=== PATIENT | female | born 1955 | race Caucasian/White ===

== ENCOUNTER → 2016-06-07 | Outpatient (CLI) | payer OTHER ==
[~2016-06-07] MED LIST: 'PARAFON FORTE500 M1 PO; ANTIBIOTIC O500 U/GM TP; FLEXERIL5 MG PO; IBUPROFEN 30 M800 MG PO; ISORDIL PO; LOVASTATIN10 MG PO; MOBIC15 MG PO; NAPROSYN500 MG PO; PEPCID20 MG PO; TRAMADOL HCL50 MG PO; XANAX0.25 MG PO; ZOLOFT50 MG PO
== END | disposition home or self-care (01) ==
LOC: MAMMO 05-24 09:00
DX: R92.8 Other abnormal and inconclusive findings on diagnostic imaging of breast (principal); Z85.3 Personal history of malignant neoplasm of breast

== ENCOUNTER → 2016-07-07 | Outpatient (CLI) | payer OTHER | END | disposition home or self-care (01) | LOC: RAD 11:30 → CT 07-10 08:00 → RAD 07-13 13:00 → CT 07-13 14:00 | DX: Z13.820 Encounter for screening for osteoporosis (principal); M85.88 Other specified disorders of bone density and structure, other site; F17.200 Nicotine dependence, unspecified, uncomplicated; Z85.3 Personal history of malignant neoplasm of breast; Z90.11 Acquired absence of right breast and nipple ==

== ENCOUNTER → 2016-07-10 | Outpatient (CLI) | payer OTHER | END | disposition home or self-care (01) | LOC: CT 01:45 | DX: K58.9 Irritable bowel syndrome, unspecified (principal); R78.4 Finding of other drugs of addictive potential in blood; Z85.3 Personal history of malignant neoplasm of breast ==

== ENCOUNTER 2017-02-02 14:38 | Inpatient (IN) | payer OTHER ==
[~2017-02-02] VITALS: Ht 160 cm; Wt 69.5 kg
[~2017-02-02 14:38] MED LIST changes: -BUSPAR5 MG PO
[2017-02-02 14:50] VITALS: BP 158/74
[2017-02-02 15:06] LABS: BASO # 0.1 10*3/uL (0.0-0.1); BASO % 0.8 % (0.0-1.0); EOS # 0.1 10*3/uL (0.0-0.4); EOS % 1.4 % (1.0-4.0); HEMATOCRIT 47.6 % (37.0-47.0); LYMPH # 2.9 10*3/uL (1.3-4.4); LYMPH % 34.5 % (27.0-41.0); MEAN CELL VOLUME 89.6 fl (81.0-99.0); MEAN CORPUSCULAR HGB 30.1 pg (27.0-31.0); MEAN CORPUSCULAR HGB CONC 33.6 g/dl (33.0-37.0); MONO # 0.8 10*3/uL (0.1-1.0); MONO % 9.7 % (3.0-9.0); NEUT # 4.5 10*3/uL (2.3-7.9); NEUT % 53.4 % (47.0-73.0); PLATELET COUNT AUTOMATED 298 10*3/uL (130-400); RED BLOOD COUNT 5.31 10*6/uL (4.10-5.10); RED CELL DISTRI WIDTH 13.2 % (0-14.5); WHITE BLOOD COUNT 8.5 10*3/uL (4.8-10.8)
[2017-02-02 15:16] LABS: ACT PARTIAL THROMBO TIME 25.5 SECONDS (20.8-31.5); INTERNATIONAL NORM RATIO 0.9 (2.0-3.5)
[2017-02-02 15:23] LABS: ALKALINE PHOSPHATASE 125 U/L (45-117); BUN 12 mg/dl (7-24); CHLORIDE 104 mmol/L (98-107); CREATININE 0.88 mg/dL (0.55-1.02); POTASSIUM 4.2 mmol/L (3.5-5.1); SGOT/AST 13 IU/L (3-35); SGPT/ALT 21 U/L (12-78); SODIUM 137 mmol/L (136-145); TOTAL PROTEIN 8.1 gm/dL (6.4-8.2)
[2017-02-02 15:29] LABS: TROPONIN I < 0.015 ng/ml (<0.045)
[2017-02-02 15:48] LABS: BILIRUBIN NEGATIVE (NEGATIVE); BLOOD 1+ (NEGATIVE); CLARITY CLEAR (CLEAR); COLOR YELLOW (YELLOW); GLUCOSE NEGATIVE (NEGATIVE); KETONE NEGATIVE (NEGATIVE); LEUKO ESTERASE NEGATIVE (NEGATIVE); NITRITE NEGATIVE (NEGATIVE); PH 5.5 (5.0-9.0); UROBILINOGEN 0.2 E.U./dl (0.2-1.0)
[2017-02-02 15:50] LABS: BACTERIA TRACE; WBC 0-2 wbc/hpf (0-5)
[2017-02-02 16:00] VITALS: BP 102/68
[2017-02-02] MEDS ORDERED: BUSPAR5 MG PO (16:43)
[2017-02-02 20:00] VITALS: BP 129/51
[2017-02-03] VITALS: BP 108/60
[2017-02-03 07:12] LABS: BASO # 0.1 10*3/uL (0.0-0.1); BASO % 0.8 % (0.0-1.0); EOS # 0.1 10*3/uL (0.0-0.4); EOS % 1.8 % (1.0-4.0); HEMATOCRIT 45.4 % (37.0-47.0); HEMOGLOBIN 15.1 g/dl (12.0-16.0); LYMPH # 2.2 10*3/uL (1.3-4.4); LYMPH % 36.8 % (27.0-41.0); MEAN CELL VOLUME 89.5 fl (81.0-99.0); MEAN CORPUSCULAR HGB 29.8 pg (27.0-31.0); MEAN CORPUSCULAR HGB CONC 33.3 g/dl (33.0-37.0); MEAN PLATELET VOLUME 10.1 fl (9.6-12.3); MONO # 0.7 10*3/uL (0.1-1.0); MONO % 11.3 % (3.0-9.0); NEUT # 2.9 10*3/uL (2.3-7.9); NEUT % 49.1 % (47.0-73.0); PLATELET COUNT AUTOMATED 283 10*3/uL (130-400); RED BLOOD COUNT 5.07 10*6/uL (4.10-5.10); RED CELL DISTRI WIDTH 13.2 % (0-14.5)
[2017-02-03 07:45] LABS: BUN 12 mg/dl (7-24); CHLORIDE 106 mmol/L (98-107); CHOLESTEROL 181 mg/dL (<200); CREATININE 0.78 mg/dL (0.55-1.02); HDL CHOLESTEROL 45 mg/dl (40-60); LDL CHOLESTEROL 110 mg/dL (9-159); POTASSIUM 4.1 mmol/L (3.5-5.1); SODIUM 139 mmol/L (136-145); TRIGLYCERIDES 130 mg/dl (<150); VLDL CHOLESTEROL 26 mg/dL (6-40)
[2017-02-03 07:46] LABS: ACT PARTIAL THROMBO TIME 25.4 SECONDS (20.8-31.5); INTERNATIONAL NORM RATIO 0.9 (2.0-3.5)
[2017-02-03 07:50] LABS: THYROID STIM HORMONE (HS) 0.933 uIU/ml (0.358-4.75)
[2017-02-03 08:00] VITALS: BP 125/66
[2017-02-03 09:07] LABS: VITAMIN D, 25-HYDROXY 15.4 ng/mL (30-100)
[2017-02-03 12:00] VITALS: BP 105/56
== END 2017-02-03 15:13 | disposition home or self-care (01) | DRG 312 ==
LOC: ED 14:38 → EDHOLD 15:34 → 5E 16:11
PROVIDERS: Emergency Medicine; Internal Medicine; ADMIT Internal Medicine
DX: R55 Syncope and collapse (principal); E83.41 Hypermagnesemia; F17.210 Nicotine dependence, cigarettes, uncomplicated; I10 Essential (primary) hypertension; Z71.6 Tobacco abuse counseling; Z90.11 Acquired absence of right breast and nipple; Z80.41 Family history of malignant neoplasm of ovary; Z82.49 Family history of ischemic heart disease and other diseases of the circulatory system; Z88.6 Allergy status to analgesic agent; Z88.8 Allergy status to other drugs, medicaments and biological substances; Z79.899 Other long term (current) drug therapy

== ENCOUNTER → 2017-02-02 | Outpatient (CLI) | payer OTHER ==
[~2017-02-02] MED LIST changes: +BUSPAR5 MG PO
== END ==
LOC: CT 10:25
DX: N63.20 Unspecified lump in the left breast, unspecified quadrant (principal); C50.912 Malignant neoplasm of unspecified site of left female breast; I25.10 Atherosclerotic heart disease of native coronary artery without angina pectoris

== ENCOUNTER 2017-02-08 10:01 | Emergency (ER) | payer OTHER ==
[~2017-02-08] VITALS: Ht 160 cm; Wt 68.0 kg
[~2017-02-08 10:01] MED LIST changes: +BUSPAR5 MG PO
[2017-02-08 10:36] LABS: BASO # 0.1 10*3/uL (0.0-0.1); BASO % 0.9 % (0.0-1.0); EOS # 0.1 10*3/uL (0.0-0.4); EOS % 0.7 % (1.0-4.0); HEMATOCRIT 48.8 % (37.0-47.0); HEMOGLOBIN 16.3 g/dl (12.0-16.0); MEAN CELL VOLUME 90.4 fl (81.0-99.0); MEAN CORPUSCULAR HGB 30.2 pg (27.0-31.0); MEAN CORPUSCULAR HGB CONC 33.4 g/dl (33.0-37.0); MEAN PLATELET VOLUME 10.2 fl (9.6-12.3); MONO # 0.7 10*3/uL (0.1-1.0); MONO % 9.8 % (3.0-9.0); NEUT # 4.7 10*3/uL (2.3-7.9); NEUT % 62.3 % (47.0-73.0); PLATELET COUNT AUTOMATED 292 10*3/uL (130-400); RED CELL DISTRI WIDTH 13.3 % (0-14.5); WHITE BLOOD COUNT 7.5 10*3/uL (4.8-10.8)
[2017-02-08 10:55] LABS: ALBUMIN 3.9 gm/dl (3.1-4.5); ALKALINE PHOSPHATASE 119 U/L (45-117); BUN 15 mg/dl (7-24); CHLORIDE 104 mmol/L (98-107); CREATININE 0.76 mg/dL (0.55-1.02); POTASSIUM 4.1 mmol/L (3.5-5.1); SGOT/AST 12 IU/L (3-35); SGPT/ALT 18 U/L (12-78); SODIUM 139 mmol/L (136-145); TOTAL PROTEIN 7.9 gm/dL (6.4-8.2)
[2017-02-08] MEDS ORDERED: ATIVAN1 MG PO (11:23)
[2017-02-08 11:28] VITALS: BP 144/76
== END 2017-02-08 11:53 | disposition home or self-care (01) ==
LOC: ED 10:01
PROVIDERS: Emergency Medicine
DX: R42 Dizziness and giddiness (principal); F41.9 Anxiety disorder, unspecified; R55 Syncope and collapse; R68.2 Dry mouth, unspecified; I10 Essential (primary) hypertension; F17.200 Nicotine dependence, unspecified, uncomplicated; Z88.6 Allergy status to analgesic agent; Z88.8 Allergy status to other drugs, medicaments and biological substances

== ENCOUNTER 2017-04-22 18:19 | Emergency (ER) | payer OTHER ==
[~2017-04-22] VITALS: Ht 160 cm; Wt 68.0 kg
[~2017-04-22 18:19] MED LIST changes: +ATIVAN1 MG PO
[2017-04-22 18:46] LABS: BASO # 0.1 10*3/uL (0.0-0.1); BASO % 0.9 % (0.0-1.0); EOS # 0.1 10*3/uL (0.0-0.4); EOS % 1.6 % (1.0-4.0); HEMATOCRIT 46.5 % (37.0-47.0); HEMOGLOBIN 15.6 g/dl (12.0-16.0); LYMPH # 2.8 10*3/uL (1.3-4.4); LYMPH % 32.4 % (27.0-41.0); MEAN CELL VOLUME 89.9 fl (81.0-99.0); MEAN CORPUSCULAR HGB 30.2 pg (27.0-31.0); MEAN CORPUSCULAR HGB CONC 33.5 g/dl (33.0-37.0); MEAN PLATELET VOLUME 9.9 fl (9.6-12.3); MONO # 0.9 10*3/uL (0.1-1.0); MONO % 9.9 % (3.0-9.0); NEUT # 4.7 10*3/uL (2.3-7.9); NEUT % 54.9 % (47.0-73.0); PLATELET COUNT AUTOMATED 329 10*3/uL (130-400); RED BLOOD COUNT 5.17 10*6/uL (4.10-5.10); RED CELL DISTRI WIDTH 13.1 % (0-14.5); WHITE BLOOD COUNT 8.6 10*3/uL (4.8-10.8)
[2017-04-22 18:59] LABS: INTERNATIONAL NORM RATIO 0.9 (2.0-3.5)
[2017-04-22 19:04] LABS: ALBUMIN 3.9 gm/dl (3.1-4.5); ALKALINE PHOSPHATASE 121 U/L (45-117); BUN 14 mg/dl (7-24); CHLORIDE 102 mmol/L (98-107); CREATININE 0.87 mg/dL (0.55-1.02); POTASSIUM 4.1 mmol/L (3.5-5.1); SGOT/AST 10 IU/L (3-35); SGPT/ALT 19 U/L (12-78); SODIUM 138 mmol/L (136-145); TOTAL PROTEIN 7.7 gm/dL (6.4-8.2)
[2017-04-22 19:06] LABS: TROPONIN I < 0.015 ng/ml (<0.045)
[2017-04-22] MEDS ORDERED: ATIVAN1 MG PO (19:56)
[2017-04-22 20:00] VITALS: BP 126/73
== END 2017-04-22 20:11 | disposition home or self-care (01) ==
LOC: ED 18:19
PROVIDERS: Physician Assistant
DX: F41.9 Anxiety disorder, unspecified (principal); M25.512 Pain in left shoulder; F17.200 Nicotine dependence, unspecified, uncomplicated; Z90.89 Acquired absence of other organs; Z98.890 Other specified postprocedural states; Z88.6 Allergy status to analgesic agent; Z88.5 Allergy status to narcotic agent; Z88.8 Allergy status to other drugs, medicaments and biological substances

== ENCOUNTER → 2017-05-31 | Outpatient (CLI) | payer OTHER | END | disposition home or self-care (01) | LOC: MAMMO 08:28 | DX: C50.912 Malignant neoplasm of unspecified site of left female breast (principal); F17.200 Nicotine dependence, unspecified, uncomplicated ==

== ENCOUNTER 2017-10-15 15:12 | Inpatient (IN) | payer OTHER ==
[~2017-10-15] VITALS: Ht 158.8 cm; Wt 70.6 kg
--- NOTE | ~2017-10-15 | EKG ---
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
--- NOTE | ~2017-10-15 | EKG ---
[place], [place] ELECTROCARDIOGRAM REPORT NAME: SADAF COLLINS UNIT #: [id number] ROOM: 517 DOCTOR: EMANY DRAFT REPORT BIRTHDATE: [birth year] [facility] Test Date: 2017-10-15 Test Time: 21:02:15 Pat Name: SADAF COLLINS Department: Room: 517 Gender: F Manager Surgical: : 1955 Requested By: MARIN COATS Order Number: [id number] Reading MD: Franco Larry MD Measurements Intervals [place] Rate: 71 P: 57 CT: 119 QRS: 86 QRSD: 78 T: 113 QT: 386 QTc: 420 Interpretive Statements Sinus rhythm Borderline short CT interval Left atrial enlargement Borderline right axis deviation Nonspecific T abnormalities, lateral leads Inferior ST elevation Compared to previous tracing, lateral T-wave abnormalities are now present Electronically Signed On 10-15-2017 20:00:46 PDT by Franco Larry MD CM:EKGRPT:ELECTROCARDIOGRAM REPORT 01 99 MARIN COATS EPIPHANY DRAFT REPORT MARIN COATS
--- NOTE | ~2017-10-15 | EKG ---
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 Electronically Signed On 10-15-2017 19:58:57 PDT by Franco Larry MD CM:EKGRPT:ELECTROCARDIOGRAM REPORT 29 57 MARIN COATS EPIPHANY DRAFT REPORT MARIN COATS
[2017-10-15 15:13] VITALS: BP 151/68
[2017-10-15 15:33] LABS: BASO # 0.1 10*3/uL (0.0-0.1); BASO % 0.9 % (0.0-1.0); EOS # 0.1 10*3/uL (0.0-0.4); HEMOGLOBIN 15.8 g/dl (12.0-16.0); LYMPH # 2.5 10*3/uL (1.3-4.4); LYMPH % 36.4 % (27.0-41.0); MEAN CELL VOLUME 89.5 fl (81.0-99.0); MEAN CORPUSCULAR HGB 30.1 pg (27.0-31.0); MEAN CORPUSCULAR HGB CONC 33.6 g/dl (33.0-37.0); MEAN PLATELET VOLUME 9.8 fl (9.6-12.3); MONO # 0.6 10*3/uL (0.1-1.0); MONO % 8.9 % (3.0-9.0); NEUT # 3.6 10*3/uL (2.3-7.9); NEUT % 51.7 % (47.0-73.0); PLATELET COUNT AUTOMATED 273 10*3/uL (130-400); RED BLOOD COUNT 5.25 10*6/uL (4.10-5.10); RED CELL DISTRI WIDTH 14.3 % (0-14.5); WHITE BLOOD COUNT 6.9 10*3/uL (4.8-10.8)
[2017-10-15 15:43] LABS: ACT PARTIAL THROMBO TIME 25.1 SECONDS (20.8-31.5); INTERNATIONAL NORM RATIO 0.9 (2.0-3.5)
[2017-10-15] MEDS ORDERED: PRAVACHOL PO (15:50)
[2017-10-15] MEDS ORDERED: VITAMIN E200 UNI1 PO (15:50)
[2017-10-15] MEDS ORDERED: SERTRALINE20 MG/1 ML PO (15:52)
[2017-10-15 15:54] LABS: ALKALINE PHOSPHATASE 108 U/L (45-117); BUN 18 mg/dl (7-24); CHLORIDE 105 mmol/L (98-107); CREATININE 1.09 mg/dL (0.55-1.02); POTASSIUM 3.8 mmol/L (3.5-5.1); SGOT/AST 10 IU/L (3-35); SGPT/ALT 19 U/L (12-78); SODIUM 139 mmol/L (136-145); TOTAL PROTEIN 7.4 gm/dL (6.4-8.2); TROPONIN I 0.042 ng/ml (<0.045)
[2017-10-15 16:00] VITALS: BP 147/58
[2017-10-15 16:00] LABS: THYROID STIM HORMONE (HS) 1.78 uIU/ml (0.358-4.75)
[2017-10-15 16:56] VITALS: BP 138/57
[2017-10-15] MEDS ORDERED: VITAMIN D50000 UNIT PO (16:58)
[2017-10-15] MEDS ORDERED: ZOLOFT50 MG PO (16:58)
[2017-10-15 17:05] VITALS: BP 111/72
[2017-10-15 17:58] VITALS: BP 136/65
[2017-10-15] MEDS ORDERED: CALCIUM500 M1 PO (18:26)
[2017-10-16] VITALS: BP 136/65
[2017-10-16 05:56] LABS: BASO # 0.1 10*3/uL (0.0-0.1); BASO % 0.9 % (0.0-1.0); EOS # 0.2 10*3/uL (0.0-0.4); EOS % 1.9 % (1.0-4.0); HEMATOCRIT 46.9 % (37.0-47.0); HEMOGLOBIN 15.2 g/dl (12.0-16.0); LYMPH # 2.9 10*3/uL (1.3-4.4); LYMPH % 31.7 % (27.0-41.0); MEAN CELL VOLUME 90.7 fl (81.0-99.0); MEAN CORPUSCULAR HGB 29.4 pg (27.0-31.0); MEAN CORPUSCULAR HGB CONC 32.4 g/dl (33.0-37.0); MEAN PLATELET VOLUME 10.3 fl (9.6-12.3); MONO # 0.9 10*3/uL (0.1-1.0); MONO % 9.4 % (3.0-9.0); NEUT # 5.1 10*3/uL (2.3-7.9); NEUT % 55.9 % (47.0-73.0); PLATELET COUNT AUTOMATED 278 10*3/uL (130-400); RED BLOOD COUNT 5.17 10*6/uL (4.10-5.10); RED CELL DISTRI WIDTH 14.3 % (0-14.5); WHITE BLOOD COUNT 9.2 10*3/uL (4.8-10.8)
[2017-10-16 06:13] LABS: BUN 14 mg/dl (7-24); CHLORIDE 110 mmol/L (98-107); CHOLESTEROL 250 mg/dL (<200); CREATININE 0.75 mg/dL (0.55-1.02); HDL CHOLESTEROL 48 mg/dl (40-60); LDL CHOLESTEROL 170 mg/dL (9-159); LIPASE 234 U/L (73-393); POTASSIUM 4.1 mmol/L (3.5-5.1); SODIUM 141 mmol/L (136-145); TRIGLYCERIDES 161 mg/dl (<150); VLDL CHOLESTEROL 32 mg/dL (6-40)
[2017-10-16 07:29] LABS: VITAMIN D, 25-HYDROXY 21.9 ng/mL (30-100)
== END 2017-10-16 10:47 | disposition short-term general hospital (02) | DRG 280 ==
LOC: ED 15:12 → EDHOLD 16:41 → 5E 16:41
PROVIDERS: Internal Medicine; Nurse Practitioner Family
DX: I21.19 ST elevation (STEMI) myocardial infarction involving other coronary artery of inferior wall (principal); N17.0 Acute kidney failure with tubular necrosis; K57.92 Diverticulitis of intestine, part unspecified, without perforation or abscess without bleeding; I24.9 Acute ischemic heart disease, unspecified; R74.8 Abnormal levels of other serum enzymes; E83.41 Hypermagnesemia; I10 Essential (primary) hypertension; F41.9 Anxiety disorder, unspecified; E78.5 Hyperlipidemia, unspecified; R73.9 Hyperglycemia, unspecified; F17.210 Nicotine dependence, cigarettes, uncomplicated; Z88.8 Allergy status to other drugs, medicaments and biological substances; Z71.6 Tobacco abuse counseling; Z85.3 Personal history of malignant neoplasm of breast; Z90.12 Acquired absence of left breast and nipple; Z79.899 Other long term (current) drug therapy; Z82.49 Family history of ischemic heart disease and other diseases of the circulatory system; Z82.3 Family history of stroke; Z80.41 Family history of malignant neoplasm of ovary; Z92.21 Personal history of antineoplastic chemotherapy; Z92.3 Personal history of irradiation

== ENCOUNTER 2018-01-13 08:43 | Emergency (ER) | payer OTHER ==
[~2018-01-13] VITALS: Ht 157.4 cm; Wt 63.5 kg
--- NOTE | ~2018-01-13 | EKG ---
[place], [place] ELECTROCARDIOGRAM REPORT NAME: SADAF COLLINS UNIT #: [id number] ROOM: DOCTOR: EPIPHANY DRAFT REPORT BIRTHDATE: [birth year] 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 Of Officers: Mikayla Barboza : 1955 Requested By: CRYSTAL MAURICE Order Number: [id number] Reading MD: Franco Larry MD Measurements Intervals [place] Rate: 74 P: 60 UT: 115 QRS: 70 QRSD: 83 T: 106 QT: 403 QTc: 448 Interpretive Statements Sinus rhythm Borderline short [place] interval Borderline repolarization abnormality Compared to ECG 12/15/2017 15:26:10 Rate is slower Atrial abnormality no longer present T-wave abnormality no longer present Electronically Signed On 01-13-2018 12:50:21 PDT by Franco Larry MD CM:EKGRPT:ELECTROCARDIOGRAM REPORT 0917 [id number] CRYSTAL PONCE DRAFT REPORT CRYSTAL MAURCIE MD
[~2018-01-13 08:43] MED LIST changes: +ASPIRIN ADULT L81 M1 PO; +ATIVAN0.5 MG PO; +CALCIUM500 M1 PO; +D3-5050000 UNIT PO; +LIPITOR40 MG PO; +Lopressor25 MG PO; +PRAVACHOL PO; +SERTRALINE20 MG/1 ML PO; +VITAMIN D50000 UNIT PO; +VITAMIN E200 UNI1 PO
[2018-01-13 09:00] LABS: BASO # 0.1 10*3/uL (0.0-0.1); BASO % 0.8 % (0.0-1.0); EOS # 0.2 10*3/uL (0.0-0.4); EOS % 1.8 % (1.0-4.0); HEMATOCRIT 43.2 % (37.0-47.0); HEMOGLOBIN 13.7 g/dl (12.0-16.0); LYMPH % 20.3 % (27.0-41.0); MEAN CELL VOLUME 87.1 fl (81.0-99.0); MEAN CORPUSCULAR HGB 27.6 pg (27.0-31.0); MEAN CORPUSCULAR HGB CONC 31.7 g/dl (33.0-37.0); MEAN PLATELET VOLUME 9.7 fl (9.6-12.3); MONO # 0.9 10*3/uL (0.1-1.0); MONO % 9.2 % (3.0-9.0); NEUT # 6.7 10*3/uL (2.3-7.9); NEUT % 67.6 % (47.0-73.0); PLATELET COUNT AUTOMATED 307 10*3/uL (130-400); RED BLOOD COUNT 4.96 10*6/uL (4.10-5.10); RED CELL DISTRI WIDTH 16.3 % (0-14.5); WHITE BLOOD COUNT 9.9 10*3/uL (4.8-10.8)
[2018-01-13 09:09] LABS: ACT PARTIAL THROMBO TIME 24.7 SECONDS (20.8-31.5); INTERNATIONAL NORM RATIO 0.9 (2.0-3.5)
[2018-01-13 09:17] LABS: ALBUMIN 3.6 gm/dl (3.1-4.5); ALKALINE PHOSPHATASE 123 U/L (45-117); BUN 18 mg/dl (7-24); CHLORIDE 102 mmol/L (98-107); CREATININE 0.94 mg/dL (0.55-1.02); SGOT/AST 8 IU/L (3-35); SGPT/ALT 19 U/L (12-78); SODIUM 136 mmol/L (136-145); TOTAL PROTEIN 7.7 gm/dL (6.4-8.2)
[2018-01-13 09:21] LABS: TROPONIN I < 0.015 ng/ml (<0.045)
[2018-01-13 09:29] LABS: BILIRUBIN NEGATIVE (NEGATIVE); BLOOD 1+ (NEGATIVE); CLARITY CLEAR (CLEAR); COLOR YELLOW (YELLOW); GLUCOSE NEGATIVE (NEGATIVE); KETONE NEGATIVE (NEGATIVE); LEUKO ESTERASE NEGATIVE (NEGATIVE); NITRITE NEGATIVE (NEGATIVE); PH 5.5 (5.0-9.0); SPECIFIC GRAVITY >= 1.030 (1.005-1.030); UROBILINOGEN 0.2 E.U./dl (0.2-1.0)
[2018-01-13 09:40] LABS: BACTERIA TRACE
[2018-01-13 10:33] VITALS: BP 108/38
== END 2018-01-13 10:51 | disposition home or self-care (01) ==
LOC: ED 08:43
PROVIDERS: Emergency Medicine
DX: R42 Dizziness and giddiness (principal); I95.9 Hypotension, unspecified; F41.9 Anxiety disorder, unspecified; R21 Rash and other nonspecific skin eruption; I25.10 Atherosclerotic heart disease of native coronary artery without angina pectoris; E78.5 Hyperlipidemia, unspecified; I10 Essential (primary) hypertension; I25.2 Old myocardial infarction; E66.3 Overweight; F17.200 Nicotine dependence, unspecified, uncomplicated; Z88.6 Allergy status to analgesic agent; Z88.8 Allergy status to other drugs, medicaments and biological substances; Z79.899 Other long term (current) drug therapy; Z79.82 Long term (current) use of aspirin; Z68.25 Body mass index [BMI] 25.0-25.9, adult; Z98.890 Other specified postprocedural states; Z95.1 Presence of aortocoronary bypass graft

== ENCOUNTER 2018-01-23 09:39 | Inpatient (IN) | payer OTHER ==
[~2018-01-23] VITALS: Ht 160 cm; Wt 64.7 kg
--- NOTE | ~2018-01-23 | EKG ---
[place], [place] ELECTROCARDIOGRAM REPORT NAME: SADAF COLLINS UNIT #: [id number] ROOM: 506 DOCTOR: ROSARIO DRAFT REPORT BIRTHDATE: [birth year] [facility] Test Date: 2018-01-23 Test Time: 10:41:50 Pat Name: SADAF COLLINS Department: Room: 506 Gender: F Nipple Maker: Mikayla Barboza : 1955 Requested By: STEPHEN COATS Order Number: [id number] Reading MD: Franco Larry MD Measurements Intervals [place] Rate: 74 P: 53 FL: 107 QRS: 64 QRSD: 76 T: 106 QT: 391 QTc: 434 Interpretive Statements Sinus rhythm Short [place] interval Left atrial enlargement Nonspecific T abnormalities, lateral leads Compared to ECG 01/13/2018 09:17:30 T-wave abnormality now present Electronically Signed On 01-23-2018 11:57:27 PST by Franco Larry MD CM:EKGRPT:ELECTROCARDIOGRAM REPORT 1041 1157 STEPHEN COATS EPIPHANY DRAFT REPORT STEPHEN COATS
--- NOTE | ~2018-01-23 | EKG ---
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
--- NOTE | ~2018-01-23 | EKG ---
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 Electronically Signed On 01-23-2018 11:58:51 PST by Franco Larry MD CM:EKGRPT:ELECTROCARDIOGRAM REPORT 1323 1158 STEPHEN COATS EPIPHANY DRAFT REPORT STEPHEN COATS
[2018-01-23 09:40] VITALS: BP 162/67
[2018-01-23 10:47] VITALS: BP 150/69
[2018-01-23 10:47] LABS: BASO # 0.1 10*3/uL (0.0-0.1); BASO % 1.2 % (0.0-1.0); EOS # 0.1 10*3/uL (0.0-0.4); EOS % 1.8 % (1.0-4.0); HEMATOCRIT 46.5 % (37.0-47.0); HEMOGLOBIN 14.8 g/dl (12.0-16.0); LYMPH % 27.6 % (27.0-41.0); MEAN CELL VOLUME 86.1 fl (81.0-99.0); MEAN CORPUSCULAR HGB 27.4 pg (27.0-31.0); MEAN CORPUSCULAR HGB CONC 31.8 g/dl (33.0-37.0); MEAN PLATELET VOLUME 9.2 fl (9.6-12.3); MONO # 0.6 10*3/uL (0.1-1.0); MONO % 8.4 % (3.0-9.0); NEUT # 4.5 10*3/uL (2.3-7.9); NEUT % 60.9 % (47.0-73.0); PLATELET COUNT AUTOMATED 408 10*3/uL (130-400); RED CELL DISTRI WIDTH 16.4 % (0-14.5); WHITE BLOOD COUNT 7.4 10*3/uL (4.8-10.8)
[2018-01-23 10:58] LABS: ACT PARTIAL THROMBO TIME 25.5 SECONDS (20.8-31.5); INTERNATIONAL NORM RATIO 0.9 (2.0-3.5)
[2018-01-23 11:02] LABS: ALBUMIN 3.8 gm/dl (3.1-4.5); ALKALINE PHOSPHATASE 121 U/L (45-117); BUN 12 mg/dl (7-24); CHLORIDE 104 mmol/L (98-107); CREATININE 0.75 mg/dL (0.55-1.02); POTASSIUM 4.3 mmol/L (3.5-5.1); SGOT/AST 13 IU/L (3-35); SGPT/ALT 21 U/L (12-78); SODIUM 139 mmol/L (136-145); TOTAL PROTEIN 8.4 gm/dL (6.4-8.2)
[2018-01-23 11:05] LABS: TROPONIN I < 0.015 ng/ml (<0.045)
[2018-01-23 12:12] VITALS: BP 134/74
[2018-01-23 13:00] VITALS: BP 102/60
[2018-01-23 16:00] VITALS: BP 134/86; BP 138/72
[2018-01-23 20:00] VITALS: BP 111/50
[2018-01-24] VITALS: BP 118/50
[2018-01-24 06:35] LABS: BASO # 0.1 10*3/uL (0.0-0.1); EOS # 0.1 10*3/uL (0.0-0.4); EOS % 2.3 % (1.0-4.0); HEMATOCRIT 43.9 % (37.0-47.0); LYMPH # 2.1 10*3/uL (1.3-4.4); LYMPH % 33.6 % (27.0-41.0); MEAN CELL VOLUME 86.1 fl (81.0-99.0); MEAN CORPUSCULAR HGB 27.5 pg (27.0-31.0); MEAN CORPUSCULAR HGB CONC 31.9 g/dl (33.0-37.0); MEAN PLATELET VOLUME 9.7 fl (9.6-12.3); MONO # 0.6 10*3/uL (0.1-1.0); MONO % 9.7 % (3.0-9.0); NEUT # 3.3 10*3/uL (2.3-7.9); NEUT % 53.2 % (47.0-73.0); PLATELET COUNT AUTOMATED 348 10*3/uL (130-400); RED CELL DISTRI WIDTH 16.5 % (0-14.5); WHITE BLOOD COUNT 6.2 10*3/uL (4.8-10.8)
[2018-01-24 06:43] LABS: INTERNATIONAL NORM RATIO 0.9 (2.0-3.5)
[2018-01-24 06:52] LABS: BUN 16 mg/dl (7-24); CHLORIDE 108 mmol/L (98-107); POTASSIUM 4.2 mmol/L (3.5-5.1); SODIUM 139 mmol/L (136-145)
[2018-01-24 07:37] LABS: CREATININE 0.73 mg/dL (0.55-1.02); FREE T4 1.04 ng/dl (0.76-1.46); HDL CHOLESTEROL 42 mg/dl (40-60); PHOSPHOROUS 3.8 mg/dL (2.5-4.9); SGOT/AST 16 IU/L (3-35); SGPT/ALT 16 U/L (12-78); THYROID STIM HORMONE (HS) 0.944 uIU/ml (0.358-4.75); TOTAL PROTEIN 7.3 gm/dL (6.4-8.2)
[2018-01-24 07:52] LABS: ALBUMIN 3.4 gm/dl (3.1-4.5); ALKALINE PHOSPHATASE 105 U/L (45-117); CHOLESTEROL 120 mg/dL (<200); LDL CHOLESTEROL 49 mg/dL (9-159); TRIGLYCERIDES 146 mg/dl (<150); VLDL CHOLESTEROL 29 mg/dL (6-40)
[2018-01-24 08:00] VITALS: BP 130/82
[2018-01-24 12:00] VITALS: BP 128/53
== END 2018-01-24 15:58 | disposition home or self-care (01) | DRG 149 ==
LOC: ED 09:39 → EDHOLD 12:06 → 5E 12:06
PROVIDERS: Family Medicine; Nurse Practitioner Family
DX: R42 Dizziness and giddiness (principal); J18.9 Pneumonia, unspecified organism; I25.810 Atherosclerosis of coronary artery bypass graft(s) without angina pectoris; M94.0 Chondrocostal junction syndrome [Tietze]; I95.9 Hypotension, unspecified; D47.3 Essential (hemorrhagic) thrombocythemia; F41.9 Anxiety disorder, unspecified; D75.1 Secondary polycythemia; R74.8 Abnormal levels of other serum enzymes; I10 Essential (primary) hypertension; F17.210 Nicotine dependence, cigarettes, uncomplicated; E55.9 Vitamin D deficiency, unspecified; E66.3 Overweight; R07.9 Chest pain, unspecified; Z71.6 Tobacco abuse counseling; Z95.1 Presence of aortocoronary bypass graft; Z88.6 Allergy status to analgesic agent; Z88.8 Allergy status to other drugs, medicaments and biological substances; Z90.12 Acquired absence of left breast and nipple; Z82.49 Family history of ischemic heart disease and other diseases of the circulatory system; Z80.41 Family history of malignant neoplasm of ovary; Z82.3 Family history of stroke; Z92.21 Personal history of antineoplastic chemotherapy; Z92.3 Personal history of irradiation; I25.2 Old myocardial infarction; Z79.899 Other long term (current) drug therapy; Z79.82 Long term (current) use of aspirin; Z68.25 Body mass index [BMI] 25.0-25.9, adult; K21.9 Gastro-esophageal reflux disease without esophagitis

== ENCOUNTER → 2018-05-15 | Outpatient (CLI) | payer OTHER ==
[~2018-05-15] MED LIST changes: +PROLIA60 MG/M1 SC
== END | disposition home or self-care (01) ==
LOC: MAMMO 05-09 11:00 → RAD 05-09 11:30 → MAMMO 13:00
DX: M85.89 Other specified disorders of bone density and structure, multiple sites (principal); N95.9 Unspecified menopausal and perimenopausal disorder; R92.8 Other abnormal and inconclusive findings on diagnostic imaging of breast; F17.210 Nicotine dependence, cigarettes, uncomplicated

== ENCOUNTER 2018-08-01 11:48 | Inpatient (IN) | payer OTHER ==
[~2018-08-01] VITALS: Ht 160 cm; Wt 69.9 kg
--- NOTE | ~2018-08-01 | EKG ---
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
--- NOTE | ~2018-08-01 | EKG ---
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
--- NOTE | ~2018-08-01 | EKG ---
[place], [place] ELECTROCARDIOGRAM REPORT NAME: SADAF COLLINS UNIT #: [id number] ROOM: 402 DOCTOR: ROSARIO DRAFT REPORT BIRTHDATE: [birth year] [facility] Test Date: 2018-08-01 Test Time: 15:56:30 Pat Name: SADAF COLLINS Department: Room: 402 Gender: F Embroiderer: RIMA : 1955 Requested By: CRYSTAL MAURICE Order Number: [id number] Reading MD: Amberly Keita MD Measurements Intervals [place] Rate: 70 P: 60 OR: 112 QRS: 78 QRSD: 78 T: 110 QT: 382 QTc: 413 Interpretive Statements Sinus rhythm Borderline short [place] interval Probable left atrial enlargement Nonspecific T abnrm, anterolateral leads Compared to ECG 01/23/2018 16:38:27 T-wave abnormality no longer present Electronically Signed On 08-01-2018 15:52:31 PDT by Amberly Keita MD CM:EKGRPT:ELECTROCARDIOGRAM REPORT 1556 1552 CRYSTAL PONCE DRAFT REPORT CRYSTAL MAURICE MD
[2018-08-01 11:48] VITALS: BP 136/59
[~2018-08-01 11:48] MED LIST changes: -PROLIA60 MG/M1 SC
[2018-08-01 12:10] LABS: BASO % 0.7 % (0.0-1.0); EOS # 0.1 10*3/uL (0.0-0.4); EOS % 1.2 % (1.0-4.0); HEMATOCRIT 45.5 % (37.0-47.0); HEMOGLOBIN 14.9 g/dl (12.0-16.0); LYMPH # 2.2 10*3/uL (1.3-4.4); LYMPH % 37.8 % (27.0-41.0); MEAN CELL VOLUME 91.9 fl (81.0-99.0); MEAN CORPUSCULAR HGB 30.1 pg (27.0-31.0); MEAN CORPUSCULAR HGB CONC 32.7 g/dl (33.0-37.0); MEAN PLATELET VOLUME 9.7 fl (9.6-12.3); MONO # 0.6 10*3/uL (0.1-1.0); MONO % 9.7 % (3.0-9.0); NEUT # 2.9 10*3/uL (2.3-7.9); NEUT % 50.4 % (47.0-73.0); PLATELET COUNT AUTOMATED 292 10*3/uL (130-400); RED BLOOD COUNT 4.95 10*6/uL (4.10-5.10); WHITE BLOOD COUNT 5.8 10*3/uL (4.8-10.8)
[2018-08-01 12:21] LABS: ACT PARTIAL THROMBO TIME 26.3 SECONDS (20.0-32.1); INTERNATIONAL NORM RATIO 0.9 (2.0-3.5)
[2018-08-01 12:35] LABS: ALBUMIN 3.9 gm/dl (3.1-4.5); ALKALINE PHOSPHATASE 137 U/L (45-117); BUN 17 mg/dl (7-24); CHLORIDE 104 mmol/L (98-107); CREATININE 0.88 mg/dL (0.55-1.02); POTASSIUM 3.9 mmol/L (3.5-5.1); SGOT/AST 9 IU/L (3-35); SGPT/ALT 21 U/L (12-78); SODIUM 138 mmol/L (136-145); TOTAL PROTEIN 7.8 gm/dL (6.4-8.2)
[2018-08-01 12:41] LABS: TROPONIN I < 0.015 ng/ml (<0.045)
[2018-08-01 12:44] VITALS: BP 125/37
[2018-08-01 13:37] VITALS: BP 137/60
--- NOTE | 2018-08-01 14:15 | NUR ---
[facility], [facility] , under the services of SMITHA Vasquez DO with a diagnosis of CHEST PAIN. Chief complaint is DENIES C/O. Patient arrived via bed from ER. Monitor applied. Initial assessment completed. Vital signs taken and recorded. SMITHA VASQUEZ DO notified of admission to the unit. Orders received. See assessment for past medical history, medications and allergies. Patient and/or family oriented to unit. [facility] visitation policy reviewed. Clothing/patient valuable form completed. TIMA MEYER
--- NOTE | 2018-08-01 14:33 | NUR ---
DR. MEEKS NOTIFIED OF CONSULT.
[2018-08-01 14:52] VITALS: BP 130/68
[2018-08-01 16:00] VITALS: BP 123/55; BP 124/58
[2018-08-01 20:00] VITALS: BP 111/53
[2018-08-02] VITALS: BP 100/48
[2018-08-02 06:05] LABS: ALBUMIN 3.5 gm/dl (3.1-4.5); ALKALINE PHOSPHATASE 111 U/L (45-117); BUN 21 mg/dl (7-24); CHLORIDE 106 mmol/L (98-107); CREATININE 0.87 mg/dL (0.55-1.02); PHOSPHOROUS 4.2 mg/dL (2.5-4.9); POTASSIUM 4.2 mmol/L (3.5-5.1); SGOT/AST 11 IU/L (3-35); SGPT/ALT 21 U/L (12-78); SODIUM 140 mmol/L (136-145); TOTAL PROTEIN 7.2 gm/dL (6.4-8.2)
[2018-08-02 06:14] LABS: BASO % 0.6 % (0.0-1.0); EOS # 0.1 10*3/uL (0.0-0.4); HEMATOCRIT 46.1 % (37.0-47.0); HEMOGLOBIN 14.9 g/dl (12.0-16.0); LYMPH # 2.4 10*3/uL (1.3-4.4); LYMPH % 37.7 % (27.0-41.0); MEAN CELL VOLUME 91.3 fl (81.0-99.0); MEAN CORPUSCULAR HGB 29.5 pg (27.0-31.0); MEAN CORPUSCULAR HGB CONC 32.3 g/dl (33.0-37.0); MONO # 0.7 10*3/uL (0.1-1.0); MONO % 11.6 % (3.0-9.0); NEUT # 3.1 10*3/uL (2.3-7.9); NEUT % 47.8 % (47.0-73.0); PLATELET COUNT AUTOMATED 264 10*3/uL (130-400); RED BLOOD COUNT 5.05 10*6/uL (4.10-5.10); RED CELL DISTRI WIDTH 14.3 % (0-14.5); WHITE BLOOD COUNT 6.4 10*3/uL (4.8-10.8)
[2018-08-02 08:00] VITALS: BP 118/60
--- NOTE | 2018-08-02 09:00 | NUR ---
Dance Therapist in to see patient. She is currently not in her room. Will follow up at a later time.
--- NOTE | 2018-08-02 09:35 | NUR ---
PATIENT GOING FOR STRESS TEST.
--- NOTE | 2018-08-02 10:30 | NUR ---
Service Captain in to see patient. She is currently not in her room. Will follow up at a later time.
--- NOTE | 2018-08-02 11:08 | NUR ---
INFORMED SIGNED CONSENT OBTAINED FOR LEXISCAN STRESS TEST WITH DR MEEKS. RESTING EKG NSR HR 79 BP 120/64. PULSE OX 97% LUNGS CLEAR. PT COMPLETED ONE MINUTE OF A LEXISCAN PROTOCOL WITH PT RECEIVING LEXISCAN 0.4MG IV OVER 10 SECONDS. NO ARRHYTHMIAS OR ST CHAGNES NOTED. PT HAD AN "ODD" FEELING WITH INJECTION. LAST RECOVERY HR OF 105 BP 106/62. PT IN STABLE CONDITION, AWAITING NUCLEAR IMAGES.
[2018-08-02 12:00] VITALS: BP 105/63
--- NOTE | 2018-08-02 14:00 | NUR ---
A&P Technician in to talk to patient. Patient states lives at home with her youngest sister and 3 children. There are 6-9 steps in the home. Physician: Aime Neil [facility]: [facility] Home health services: none Patient's level of ADLs: INDEPENDENT Patient has working utilities: yes DME: none Follow-up physician's appointment after d/c: will be made by the hospitalist nurse director upon discharge Does patient want to access PORTAL?: no Discharge plan discussed with patient. She lives at home with her youngest sister and 3 children. She is independent in her ADLs and ambulation. Discussed home health services and she denies any home needs at this time. When medically stable she will be discharged to home. LEIDY JIMENEZ
[2018-08-02 16:00] VITALS: BP 115/93
--- NOTE | 2018-08-02 16:15 | NUR ---
DR. GARCIA AWARE THAT DR. MEEKS STATED STRESS TEST WAS NEGATIVE AND THAT PATIENT COULD GO HOME FROM HIS STANDPOINT.
--- NOTE | 2018-08-02 17:47 | NUR ---
PATIENT DISCHARGED TO HOME WITH BELONGINGS. F/U ON DISCHARGE PAPERS.
[2018-09-05] MEDS ORDERED: PROLIA60 MG/M1 SC (08:28)
== END 2018-08-02 17:47 | disposition home or self-care (01) | DRG 392 ==
LOC: ED 11:48 → EDHOLD 12:48 → 4E 12:48
PROVIDERS: Emergency Medicine; Internal Medicine; ADMIT Internal Medicine
PROC: 4A02XM4 Measurement of Cardiac Total Activity, External Approach (ICD-10-PCS; principal; 2018-08-02)
PROC: 3E073KZ Introduction of Other Diagnostic Substance into Coronary Artery, Percutaneous Approach (ICD-10-PCS; 2018-08-02)
DX: K21.9 Gastro-esophageal reflux disease without esophagitis (principal); I10 Essential (primary) hypertension; F41.9 Anxiety disorder, unspecified; E78.5 Hyperlipidemia, unspecified; M25.519 Pain in unspecified shoulder; I25.10 Atherosclerotic heart disease of native coronary artery without angina pectoris; F17.218 Nicotine dependence, cigarettes, with other nicotine-induced disorders; R73.9 Hyperglycemia, unspecified; F32.9 Major depressive disorder, single episode, unspecified; E83.41 Hypermagnesemia; R74.0 Nonspecific elevation of levels of transaminase and lactic acid dehydrogenase [LDH]; I95.9 Hypotension, unspecified; Z71.6 Tobacco abuse counseling; Z95.1 Presence of aortocoronary bypass graft; Z85.3 Personal history of malignant neoplasm of breast; Z88.6 Allergy status to analgesic agent; Z90.12 Acquired absence of left breast and nipple; Z88.8 Allergy status to other drugs, medicaments and biological substances; Z92.21 Personal history of antineoplastic chemotherapy; Z92.3 Personal history of irradiation; I25.2 Old myocardial infarction; Z82.49 Family history of ischemic heart disease and other diseases of the circulatory system; Z80.41 Family history of malignant neoplasm of ovary; Z82.3 Family history of stroke; Z79.82 Long term (current) use of aspirin; Z79.899 Other long term (current) drug therapy

== ENCOUNTER → 2018-09-05 | Outpatient (CLI) | payer OTHER ==
[~2018-09-05] MED LIST changes: +PROLIA60 MG/M1 SC
[2018-09-05 08:20] VITALS: BP 125/59
== END | disposition home or self-care (01) ==
LOC: INJECTION 09-03 08:00
DX: M81.0 Age-related osteoporosis without current pathological fracture (principal); F41.9 Anxiety disorder, unspecified; I25.10 Atherosclerotic heart disease of native coronary artery without angina pectoris; I10 Essential (primary) hypertension; E78.00 Pure hypercholesterolemia, unspecified; F17.200 Nicotine dependence, unspecified, uncomplicated; Z90.12 Acquired absence of left breast and nipple; Z85.3 Personal history of malignant neoplasm of breast; Z95.1 Presence of aortocoronary bypass graft

== ENCOUNTER 2019-03-30 12:07 | Inpatient (IN) | payer OTHER ==
[~2019-03-30] VITALS: Ht 160 cm; Wt 69.4 kg
[2019-03-30 12:09] VITALS: BP 127/67
[2019-03-30 13:16] LABS: BASO # 0.1 10*3/uL (0.0-0.1); BASO % 0.8 % (0.0-1.0); EOS # 0.1 10*3/uL (0.0-0.4); EOS % 1.5 % (1.0-4.0); HEMATOCRIT 48.5 % (37.0-47.0); HEMOGLOBIN 15.7 g/dl (12.0-16.0); LYMPH # 1.8 10*3/uL (1.3-4.4); MEAN CELL VOLUME 92.6 fl (81.0-99.0); MEAN CORPUSCULAR HGB CONC 32.4 g/dl (33.0-37.0); MEAN PLATELET VOLUME 10.2 fl (9.6-12.3); MONO # 0.6 10*3/uL (0.1-1.0); NEUT # 3.5 10*3/uL (2.3-7.9); NEUT % 57.5 % (47.0-73.0); PLATELET COUNT AUTOMATED 311 10*3/uL (130-400); RED BLOOD COUNT 5.24 10*6/uL (4.10-5.10); RED CELL DISTRI WIDTH 14.1 % (0-14.5)
[2019-03-30 13:27] LABS: ACT PARTIAL THROMBO TIME 25.2 SECONDS (20.0-32.1); INTERNATIONAL NORM RATIO 0.9 (2.0-3.5)
[2019-03-30 13:33] LABS: ALBUMIN 3.8 gm/dl (3.1-4.5); ALKALINE PHOSPHATASE 90 U/L (45-117); BUN 16 mg/dl (7-24); CHLORIDE 105 mmol/L (98-107); CREATININE 0.99 mg/dL (0.55-1.02); POTASSIUM 4.4 mmol/L (3.5-5.1); SGOT/AST 15 IU/L (3-35); SGPT/ALT 25 U/L (12-78); SODIUM 139 mmol/L (136-145); TOTAL PROTEIN 7.5 gm/dL (6.4-8.2)
[2019-03-30 13:35] LABS: TROPONIN I < 0.015 ng/ml (<0.045)
[2019-03-30 13:46] VITALS: BP 133/60
[2019-03-30] MEDS ORDERED: ATORVASTATIN CA40 M1 PO (15:13)
[2019-03-30 16:25] VITALS: BP 138/53
[2019-03-30 20:00] VITALS: BP 117/54
[2019-03-31] VITALS: BP 126/56
[2019-03-31 06:11] LABS: BASO # 0.1 10*3/uL (0.0-0.1); BASO % 0.7 % (0.0-1.0); EOS # 0.2 10*3/uL (0.0-0.4); EOS % 2.2 % (1.0-4.0); HEMATOCRIT 49.2 % (37.0-47.0); HEMOGLOBIN 15.9 g/dl (12.0-16.0); LYMPH # 2.5 10*3/uL (1.3-4.4); LYMPH % 33.4 % (27.0-41.0); MEAN CELL VOLUME 92.8 fl (81.0-99.0); MEAN CORPUSCULAR HGB CONC 32.3 g/dl (33.0-37.0); MEAN PLATELET VOLUME 10.2 fl (9.6-12.3); MONO # 0.8 10*3/uL (0.1-1.0); MONO % 10.4 % (3.0-9.0); PLATELET COUNT AUTOMATED 299 10*3/uL (130-400); RED CELL DISTRI WIDTH 14.1 % (0-14.5); WHITE BLOOD COUNT 7.4 10*3/uL (4.8-10.8)
[2019-03-31 06:17] LABS: ALBUMIN 3.6 gm/dl (3.1-4.5); ALKALINE PHOSPHATASE 87 U/L (45-117); BUN 18 mg/dl (7-24); CHLORIDE 106 mmol/L (98-107); CHOLESTEROL 145 mg/dL (<200); CREATININE 1.11 mg/dL (0.55-1.02); FREE T4 0.99 ng/dl (0.76-1.46); HDL CHOLESTEROL 50 mg/dl (40-60); LDL CHOLESTEROL 68 mg/dL (9-159); POTASSIUM 4.6 mmol/L (3.5-5.1); SGOT/AST 13 IU/L (3-35); SGPT/ALT 23 U/L (12-78); SODIUM 142 mmol/L (136-145); TOTAL PROTEIN 7.3 gm/dL (6.4-8.2); TRIGLYCERIDES 133 mg/dl (<150); VLDL CHOLESTEROL 27 mg/dL (6-40)
[2019-03-31 06:22] LABS: THYROID STIM HORMONE (HS) 0.727 uIU/ml (0.358-4.75)
[2019-03-31 07:36] LABS: VITAMIN D, 25-HYDROXY 11.7 ng/mL (30-100)
[2019-03-31 07:37] VITALS: BP 122/62
[2019-03-31 12:00] VITALS: BP 90/74
[2019-03-31 13:15] VITALS: BP 130/50
[2019-03-31] MEDS ORDERED: VITAMIN D-32000 UNI1 PO (16:07)
[2019-03-31 16:09] VITALS: BP 122/66; BP 122/67
== END 2019-03-31 16:51 | disposition home or self-care (01) | DRG 243 ==
LOC: ED 12:07 → 4E 13:53 → EDHOLD 13:53 → 4E 15:58
PROVIDERS: Emergency Medicine; Internal Medicine; ADMIT Emergency Medicine
DX: K21.9 Gastro-esophageal reflux disease without esophagitis (principal); I10 Essential (primary) hypertension; J44.9 Chronic obstructive pulmonary disease, unspecified; I25.10 Atherosclerotic heart disease of native coronary artery without angina pectoris; F17.210 Nicotine dependence, cigarettes, uncomplicated; F41.9 Anxiety disorder, unspecified; R73.9 Hyperglycemia, unspecified; E83.41 Hypermagnesemia; E78.5 Hyperlipidemia, unspecified; Z85.3 Personal history of malignant neoplasm of breast; Z95.1 Presence of aortocoronary bypass graft; Z88.5 Allergy status to narcotic agent; Z88.8 Allergy status to other drugs, medicaments and biological substances; Z90.12 Acquired absence of left breast and nipple; Z92.21 Personal history of antineoplastic chemotherapy; Z92.3 Personal history of irradiation; I25.2 Old myocardial infarction; Z80.41 Family history of malignant neoplasm of ovary; Z82.49 Family history of ischemic heart disease and other diseases of the circulatory system; Z79.82 Long term (current) use of aspirin; Z79.899 Other long term (current) drug therapy; Z71.6 Tobacco abuse counseling

== ENCOUNTER → 2019-10-23 | Outpatient (CLI) | payer OTHER ==
[~2019-10-23] MED LIST changes: +ATORVASTATIN CA40 M1 PO; +VITAMIN D-32000 UNI1 PO
== END | disposition home or self-care (01) ==
LOC: MAMMO 10-22 09:00
DX: N63.10 Unspecified lump in the right breast, unspecified quadrant (principal); C50.912 Malignant neoplasm of unspecified site of left female breast; F41.9 Anxiety disorder, unspecified

== ENCOUNTER 2020-08-03 10:22 | Inpatient (IN) | payer OTHER ==
[~2020-08-03] VITALS: Ht 160 cm; Wt 66.5 kg
[2020-08-03 10:27] VITALS: BP 145/55
[2020-08-03 10:52] LABS: BASO # 0.1 10*3/uL (0.0-0.1); BASO % 1.2 % (0.0-1.0); EOS # 0.1 10*3/uL (0.0-0.4); EOS % 1.4 % (1.0-4.0); HEMATOCRIT 46.3 % (37.0-47.0); LYMPH # 1.8 10*3/uL (1.3-4.4); LYMPH % 32.3 % (27.0-41.0); MEAN CELL VOLUME 90.6 fl (81.0-99.0); MEAN CORPUSCULAR HGB 30.3 pg (27.0-31.0); MEAN CORPUSCULAR HGB CONC 33.5 g/dl (33.0-37.0); MEAN PLATELET VOLUME 9.8 fl (9.6-12.3); MONO # 0.6 10*3/uL (0.1-1.0); MONO % 11.2 % (3.0-9.0); NEUT % 53.7 % (47.0-73.0); PLATELET COUNT AUTOMATED 317 10*3/uL (130-400); RED BLOOD COUNT 5.11 10*6/uL (4.10-5.10); RED CELL DISTRI WIDTH 13.6 % (0-14.5); WHITE BLOOD COUNT 5.6 10*3/uL (4.8-10.8)
[2020-08-03 11:04] LABS: ACT PARTIAL THROMBO TIME 27.1 SECONDS (20.0-32.1); INTERNATIONAL NORM RATIO 0.9 (2.0-3.5)
[2020-08-03 11:07] LABS: ALBUMIN 3.5 gm/dl (3.1-4.5); ALKALINE PHOSPHATASE 132 U/L (45-117); BUN 17 mg/dl (7-24); CHLORIDE 106 mmol/L (98-107); CREATININE 0.87 mg/dL (0.55-1.02); POTASSIUM 4.7 mmol/L (3.5-5.1); SGOT/AST 10 IU/L (3-35); SGPT/ALT 17 U/L (12-78); SODIUM 138 mmol/L (136-145); TOTAL PROTEIN 7.7 gm/dL (6.4-8.2)
[2020-08-03 11:08] LABS: TROPONIN I < 0.015 ng/ml (<0.045)
[2020-08-03 12:45] VITALS: BP 134/79
[2020-08-03 13:20] VITALS: BP 141/54
[2020-08-03] MEDS ORDERED: COREG3.125 MG PO (14:10)
[2020-08-03 16:00] VITALS: BP 124/49
[2020-08-03 20:00] VITALS: BP 113/45
[2020-08-04] VITALS: BP 123/45
[2020-08-04 06:11] LABS: HEMATOCRIT 46.3 % (37.0-47.0); MEAN CELL VOLUME 90.4 fl (81.0-99.0); MEAN CORPUSCULAR HGB 30.1 pg (27.0-31.0); MEAN CORPUSCULAR HGB CONC 33.3 g/dl (33.0-37.0); MEAN PLATELET VOLUME 10.2 fl (9.6-12.3); PLATELET COUNT AUTOMATED 289 10*3/uL (130-400); RED BLOOD COUNT 5.12 10*6/uL (4.10-5.10); RED CELL DISTRI WIDTH 13.7 % (0-14.5); WHITE BLOOD COUNT 5.5 10*3/uL (4.8-10.8)
[2020-08-04 06:19] LABS: ACT PARTIAL THROMBO TIME 26.2 SECONDS (20.0-32.1)
[2020-08-04 06:26] LABS: ALBUMIN 3.1 gm/dl (3.1-4.5); ALKALINE PHOSPHATASE 117 U/L (45-117); BUN 18 mg/dl (7-24); CHLORIDE 108 mmol/L (98-107); CHOLESTEROL 132 mg/dL (<200); CREATININE 1.05 mg/dL (0.55-1.02); POTASSIUM 4.2 mmol/L (3.5-5.1); SGOT/AST 9 IU/L (3-35); SGPT/ALT 17 U/L (12-78); SODIUM 139 mmol/L (136-145); TRIGLYCERIDES 102 mg/dl (<150)
[2020-08-04 06:34] LABS: LDL CHOLESTEROL 64 mg/dL (9-159)
[2020-08-04 06:41] LABS: BASO % 0.7 % (0.0-1.0); EOS # 0.1 10*3/uL (0.0-0.4); LYMPH # 1.9 10*3/uL (1.3-4.4); LYMPH % 34.7 % (27.0-41.0); MONO # 0.6 10*3/uL (0.1-1.0); MONO % 10.3 % (3.0-9.0); NEUT # 2.9 10*3/uL (2.3-7.9); NEUT % 52.1 % (47.0-73.0)
[2020-08-04 06:47] LABS: VITAMIN D, 25-HYDROXY 15.1 ng/mL (30-100)
[2020-08-04 08:00] VITALS: BP 109/45
[2020-08-04 08:30] VITALS: BP 112/52
[2020-08-04 12:00] VITALS: BP 112/50
[2020-08-04] MEDS ORDERED: VITAMIN D350 MC2 PO (15:15)
== END 2020-08-04 17:38 | disposition home or self-care (01) | DRG 203 ==
LOC: ED 10:22 → 5E 12:12 → EDHOLD 12:12 → 5E 13:14
PROVIDERS: Emergency Medicine; Internal Medicine; ADMIT Internal Medicine; ATTEND Internal Medicine
PROC: 4A02XM4 Measurement of Cardiac Total Activity, External Approach (ICD-10-PCS; principal; 2020-08-04)
PROC: 3E073KZ Introduction of Other Diagnostic Substance into Coronary Artery, Percutaneous Approach (ICD-10-PCS; 2020-08-04)
DX: M94.0 Chondrocostal junction syndrome [Tietze] (principal); E83.41 Hypermagnesemia; F41.9 Anxiety disorder, unspecified; E78.5 Hyperlipidemia, unspecified; I25.10 Atherosclerotic heart disease of native coronary artery without angina pectoris; R73.9 Hyperglycemia, unspecified; R74.8 Abnormal levels of other serum enzymes; I10 Essential (primary) hypertension; E66.3 Overweight; F32.9 Major depressive disorder, single episode, unspecified; K21.9 Gastro-esophageal reflux disease without esophagitis; F17.210 Nicotine dependence, cigarettes, uncomplicated; Z71.6 Tobacco abuse counseling; Z95.1 Presence of aortocoronary bypass graft; Z88.6 Allergy status to analgesic agent; Z88.8 Allergy status to other drugs, medicaments and biological substances; Z90.12 Acquired absence of left breast and nipple; Z82.49 Family history of ischemic heart disease and other diseases of the circulatory system; Z82.3 Family history of stroke; Z80.41 Family history of malignant neoplasm of ovary; Z85.3 Personal history of malignant neoplasm of breast; Z92.21 Personal history of antineoplastic chemotherapy; Z92.3 Personal history of irradiation; Z79.899 Other long term (current) drug therapy; Z79.82 Long term (current) use of aspirin; I25.2 Old myocardial infarction; Z68.25 Body mass index [BMI] 25.0-25.9, adult

== ENCOUNTER → 2020-11-09 | Outpatient (CLI) | payer OTHER ==
[~2020-11-09] MED LIST changes: +COREG3.125 MG PO; +VITAMIN D350 MC2 PO
== END | disposition home or self-care (01) ==
LOC: MAMMO 12:54
PROVIDERS: ATTEND Nurse Practitioner Women's Health
DX: C50.912 Malignant neoplasm of unspecified site of left female breast (principal); N64.89 Other specified disorders of breast

== ENCOUNTER → 2022-01-10 | Outpatient (CLI) | payer OTHER | END | disposition home or self-care (01) | LOC: MAMMO 11-30 08:00 | PROVIDERS: ATTEND Physician Assistant | DX: D24.1 Benign neoplasm of right breast (principal); N63.10 Unspecified lump in the right breast, unspecified quadrant; N64.9 Disorder of breast, unspecified; Z85.3 Personal history of malignant neoplasm of breast ==

== ENCOUNTER 2022-02-15 09:09 | Emergency (ER) | payer OTHER ==
[~2022-02-15] VITALS: Wt 65.8 kg
[2022-02-15 09:23] VITALS: BP 125/50
[2022-02-15 09:51] LABS: BASO # 0.1 10*3/uL (0.0-0.1); BASO % 1.4 % (0.0-1.0); EOS # 0.1 10*3/uL (0.0-0.4); EOS % 1.5 % (1.0-4.0); HEMATOCRIT 49.2 % (37.0-47.0); LYMPH # 1.4 10*3/uL (1.3-4.4); LYMPH % 23.2 % (27.0-41.0); MEAN CELL VOLUME 91.4 fl (81.0-99.0); MEAN CORPUSCULAR HGB 29.7 pg (27.0-31.0); MEAN CORPUSCULAR HGB CONC 32.5 g/dl (33.0-37.0); MEAN PLATELET VOLUME 9.5 fl (9.6-12.3); MONO # 0.6 10*3/uL (0.1-1.0); MONO % 9.6 % (3.0-9.0); NEUT # 3.8 10*3/uL (2.3-7.9); NEUT % 64.1 % (47.0-73.0); PLATELET COUNT AUTOMATED 314 10*3/uL (130-400); RED BLOOD COUNT 5.38 10*6/uL (4.10-5.10); RED CELL DISTRI WIDTH 13.3 % (0-14.5); WHITE BLOOD COUNT 5.9 10*3/uL (4.8-10.8)
[2022-02-15 10:06] LABS: ACT PARTIAL THROMBO TIME 27.3 SECONDS (20.0-32.1)
[2022-02-15 10:12] LABS: ALKALINE PHOSPHATASE 116 U/L (46-116); BUN 10 mg/dl (9-23); CHLORIDE 102 mmol/L (98-107); CREATININE 0.91 mg/dL (0.55-1.02); LIPASE 83 U/L (12-53); POTASSIUM 4.5 mmol/L (3.4-5.1); SGPT/ALT 24 U/L (10-49); SODIUM 136 mmol/L (136-145)
== END 2022-02-15 12:21 | disposition home or self-care (01) ==
LOC: ED 09:09
PROVIDERS: Emergency Medicine
DX: R07.9 Chest pain, unspecified (principal); F41.9 Anxiety disorder, unspecified; Z88.8 Allergy status to other drugs, medicaments and biological substances; Z79.899 Other long term (current) drug therapy; Z79.82 Long term (current) use of aspirin; Z98.890 Other specified postprocedural states; F17.200 Nicotine dependence, unspecified, uncomplicated

== ENCOUNTER → 2022-07-18 | Outpatient (CLI) | payer MEDICARE | LOC: CARD 00:22 | PROVIDERS: ATTEND Internal Medicine Cardiovascular Disease | DX: I25.10 Atherosclerotic heart disease of native coronary artery without angina pectoris (principal); R00.1 Bradycardia, unspecified; I10 Essential (primary) hypertension; Z72.0 Tobacco use; Z95.1 Presence of aortocoronary bypass graft ==

== ENCOUNTER → 2023-01-11 | Outpatient (CLI) | payer MEDICARE | END | disposition home or self-care (01) | LOC: MAMMO 09:44 | PROVIDERS: ATTEND Physician Assistant | DX: N63.10 Unspecified lump in the right breast, unspecified quadrant (principal); C50.912 Malignant neoplasm of unspecified site of left female breast; N64.59 Other signs and symptoms in breast ==

== ENCOUNTER 2023-08-02 11:50 | Emergency (ER) | payer OTHER ==
[~2023-08-02] VITALS: Wt 63.5 kg
[2023-08-02 12:04] VITALS: BP 151/64
[2023-08-02 12:32] LABS: BASO # 0.1 10*3/uL (0.0-0.1); EOS # 0.1 10*3/uL (0.0-0.4); EOS % 2.2 % (1.0-4.0); HEMATOCRIT 48.1 % (37.0-47.0); LYMPH # 1.8 10*3/uL (1.3-4.4); LYMPH % 34.9 % (27.0-41.0); MEAN CELL VOLUME 93.6 fl (81.0-99.0); MEAN CORPUSCULAR HGB 30.4 pg (27.0-31.0); MEAN CORPUSCULAR HGB CONC 32.4 g/dl (33.0-37.0); MEAN PLATELET VOLUME 9.5 fl (9.6-12.3); MONO # 0.6 10*3/uL (0.1-1.0); MONO % 11.6 % (3.0-9.0); NEUT # 2.6 10*3/uL (2.3-7.9); NEUT % 50.1 % (47.0-73.0); PLATELET COUNT AUTOMATED 285 10*3/uL (130-400); RED BLOOD COUNT 5.14 10*6/uL (4.10-5.10); RED CELL DISTRI WIDTH 13.2 % (0-14.5); WHITE BLOOD COUNT 5.1 10*3/uL (4.8-10.8)
[2023-08-02 12:43] LABS: ACT PARTIAL THROMBO TIME 27.6 SECONDS (20.0-32.1)
[2023-08-02 13:00] LABS: ALKALINE PHOSPHATASE 135 U/L (46-116); BUN 15 mg/dl (9-23); CHLORIDE 101 mmol/L (98-107); LIPASE 43 U/L (12-53); POTASSIUM 4.2 mmol/L (3.4-5.1); SGPT/ALT 16 U/L (5-49); TOTAL PROTEIN 7.5 gm/dL (6.0-8.0)
[2023-08-02] MEDS ORDERED: Lidocaine Hydrochloride 15 ML UDC PO STA (13:32)
[2023-08-02] MEDS ORDERED: Dicyclomine Hydrochloride 20 MG/10 ML OSYR PO STA (13:32)
[2023-08-02] MEDS ORDERED: MG-AL HYDROXIDE/SIMETICONE 30 ML UDC PO STA (13:32)
== END 2023-08-02 14:55 | disposition home or self-care (01) ==
LOC: ED 11:50
PROVIDERS: Physician Assistant Medical
DX: R07.89 Other chest pain (principal); I10 Essential (primary) hypertension; I25.10 Atherosclerotic heart disease of native coronary artery without angina pectoris; E78.5 Hyperlipidemia, unspecified; K21.9 Gastro-esophageal reflux disease without esophagitis; F41.9 Anxiety disorder, unspecified; F17.200 Nicotine dependence, unspecified, uncomplicated; Z88.6 Allergy status to analgesic agent; Z88.5 Allergy status to narcotic agent; Z88.8 Allergy status to other drugs, medicaments and biological substances; Z98.890 Other specified postprocedural states; Z90.12 Acquired absence of left breast and nipple

== ENCOUNTER 2023-10-30 12:04 | Emergency (ER) | payer OTHER ==
[2023-10-30 12:48] LABS: BASO # 0.1 10*3/uL (0.0-0.1); BASO % 1.1 % (0.0-1.0); EOS # 0.1 10*3/uL (0.0-0.4); HEMATOCRIT 48.1 % (37.0-47.0); LYMPH # 1.7 10*3/uL (1.3-4.4); LYMPH % 31.1 % (27.0-41.0); MEAN CELL VOLUME 93.2 fl (81.0-99.0); MEAN CORPUSCULAR HGB 30.8 pg (27.0-31.0); MEAN CORPUSCULAR HGB CONC 33.1 g/dl (33.0-37.0); MEAN PLATELET VOLUME 9.9 fl (9.6-12.3); MONO # 0.6 10*3/uL (0.1-1.0); MONO % 10.6 % (3.0-9.0); PLATELET COUNT AUTOMATED 261 10*3/uL (130-400); RED BLOOD COUNT 5.16 10*6/uL (4.10-5.10); RED CELL DISTRI WIDTH 13.5 % (0-14.5); WHITE BLOOD COUNT 5.4 10*3/uL (4.8-10.8)
[2023-10-30 13:10] LABS: ALKALINE PHOSPHATASE 122 U/L (46-116); BUN 10 mg/dl (9-23); CHLORIDE 103 mmol/L (98-107); POTASSIUM 4.3 mmol/L (3.4-5.1); SGPT/ALT 14 U/L (5-49); TOTAL PROTEIN 7.4 gm/dL (6.0-8.0)
[2023-10-30 13:27] LABS: ACT PARTIAL THROMBO TIME 27.1 SECONDS (20.0-32.1)
[2023-10-30 14:06] VITALS: BP 131/60
[2023-10-30] MEDS ORDERED: BENZONATATE100 M1 PO (14:09)
[2023-10-30] MEDS ORDERED: TRELEGY ELLIPT1 EACH INH (14:10)
[2023-10-30] MEDS ORDERED: LORazepam 0.5 MG TAB PO ONE (15:10)
== END 2023-10-30 15:20 | disposition home or self-care (01) ==
LOC: ED 12:04
PROVIDERS: Internal Medicine
DX: F41.9 Anxiety disorder, unspecified (principal); R07.89 Other chest pain; F17.200 Nicotine dependence, unspecified, uncomplicated; Z88.6 Allergy status to analgesic agent; Z88.8 Allergy status to other drugs, medicaments and biological substances; Z79.899 Other long term (current) drug therapy; Z79.82 Long term (current) use of aspirin; Z90.12 Acquired absence of left breast and nipple; Z98.890 Other specified postprocedural states; Z95.1 Presence of aortocoronary bypass graft

== ENCOUNTER → 2023-12-17 | Outpatient (CLI) | payer OTHER ==
[~2023-12-17] MED LIST changes: +BENZONATATE100 M1 PO; +TRELEGY ELLIPT1 EACH INH
== END | disposition home or self-care (01) ==
LOC: US 13:03
PROVIDERS: ATTEND Nurse Practitioner Women's Health
DX: N83.202 Unspecified ovarian cyst, left side (principal)

== ENCOUNTER → 2024-01-16 | Outpatient (CLI) | payer OTHER | END | disposition home or self-care (01) | LOC: MAMMO 08:50 | PROVIDERS: ATTEND Physician Assistant | DX: R92.1 Mammographic calcification found on diagnostic imaging of breast (principal); Z85.3 Personal history of malignant neoplasm of breast ==

== ENCOUNTER → 2024-03-28 | Outpatient (CLI) | payer OTHER | END | disposition home or self-care (01) | LOC: US 03-24 09:30 | PROVIDERS: ATTEND Nurse Practitioner Women's Health | DX: N83.202 Unspecified ovarian cyst, left side (principal) ==

== ENCOUNTER 2024-11-10 11:20 | Emergency (ER) | payer OTHER ==
[~2024-11-10] VITALS: Ht 160 cm; Wt 65.8 kg
[2024-11-10 11:34] VITALS: BP 134/70
[2024-11-10 12:05] LABS: BASO # 0.1 10*3/uL (0.0-0.1); BASO % 1.2 % (0.0-1.0); EOS # 0.1 10*3/uL (0.0-0.4); EOS % 2.2 % (1.0-4.0); MEAN CELL VOLUME 94.1 fl (81.0-99.0); MEAN CORPUSCULAR HGB 29.9 pg (27.0-31.0); MEAN PLATELET VOLUME 9.9 fl (9.6-12.3); MONO # 0.8 10*3/uL (0.1-1.0); MONO % 13.1 % (3.0-9.0); NEUT # 2.8 10*3/uL (2.3-7.9); NEUT % 48.9 % (47.0-73.0); NUCLEATED RED BLOOD CELL 0.0 % (0.0-0.0); NUCLEATED RED BLOOD CELL 0.0 10*3/uL (0.0-0.0); PLATELET COUNT AUTOMATED 291 10*3/uL (130-400); RED CELL DISTRI WIDTH 13.2 % (0-14.5)
[2024-11-10 12:30] LABS: BUN 13 mg/dl (9-23)
== END 2024-11-10 14:34 | disposition home or self-care (01) ==
LOC: ED 11:20
PROVIDERS: Nurse Practitioner Family
DX: F41.1 Generalized anxiety disorder (principal); R07.89 Other chest pain; F32.A Depression, unspecified; K21.9 Gastro-esophageal reflux disease without esophagitis; E78.5 Hyperlipidemia, unspecified; Z88.5 Allergy status to narcotic agent; Z88.8 Allergy status to other drugs, medicaments and biological substances; Z68.25 Body mass index [BMI] 25.0-25.9, adult